=== PATIENT | female | born 1965 | race Hispanic/Latino ===

== ENCOUNTER 2024-01-09 08:32 | Day surgery (SDC) | payer OTHER ==
[~2024-01-09] VITALS: Ht 149.9 cm; Wt 104.3 kg
[~2024-01-09 08:32] MED LIST: AMLODIPINE BESYL5 MG PO; BUSPAR10 MG PO; LEXAPRO10 MG PO
[2024-01-09] MEDS ORDERED: LACTATED RINGER'S 1,000 ML IV ONE (08:36)
[2024-01-09] MEDS ORDERED: FAMOTIDINE 10MG/ML 2ML SDV IV ONE (08:36)
[2024-01-09 10:52] VITALS: BP 127/69
[2024-01-09] MEDS ORDERED: PROPOFOL 500 MG/50 ML VIAL IV ONE (15:16)
[2024-01-09] MEDS ORDERED: GLYCOPYRROLATE 0.2 MG/ML IV ONE (15:16)
[2024-01-09] MEDS ORDERED: LIDOCAINE HCL 2% 2ML SDV IV ONE (15:16)
== END 2024-01-09 11:12 | disposition home or self-care (01) | DRG 951 ==
LOC: ENDO 08:32 → ORM 09:45 → ENDO 11:12 → ORM 11:15
PROVIDERS: ATTEND Internal Medicine Gastroenterology
PROC: 0DBH8ZX Excision of Cecum, Via Natural or Artificial Opening Endoscopic, Diagnostic (ICD-10-PCS; principal; 2024-01-09)
PROC: 0DBL8ZX Excision of Transverse Colon, Via Natural or Artificial Opening Endoscopic, Diagnostic (ICD-10-PCS; 2024-01-09)
DX: Z12.11 Encounter for screening for malignant neoplasm of colon (principal); D12.0 Benign neoplasm of cecum; D12.3 Benign neoplasm of transverse colon; K64.8 Other hemorrhoids; I10 Essential (primary) hypertension; E66.9 Obesity, unspecified; Z86.010 Personal history of colon polyps